=== PATIENT | female | born 1965 | race Caucasian/White ===

== ENCOUNTER → 2023-10-31 | Outpatient (REF) | payer BC | LOC: M SFHCDERM 15:44 | PROVIDERS: ATTEND Physician Assistant | DX: L08.9 Local infection of the skin and subcutaneous tissue, unspecified (principal) ==

== ENCOUNTER → 2024-09-09 | Outpatient (REF) | payer BC | LOC: M SFHCDERM 09:30 | PROVIDERS: ATTEND Physician Assistant | DX: B07.9 Viral wart, unspecified (principal) ==